=== PATIENT | female | born 1970 | race Caucasian/White ===

== ENCOUNTER 2016-12-23 19:30 | Emergency (ER) | payer OTHER ==
[2016-12-23 20:20] VITALS: BP 113/65; PULSE 68; RESP 18; TEMP 98.4; O2SAT 100
--- NOTE | 2016-12-23 21:01 | ED PDOC ---
HPI: General Adult Time Seen by Provider: 12/23/16 20:25 Chief Complaint (Nursing): Abnormal Skin Integrity Past Medical History Vital Signs: Last Vital Signs Temp 98.4 F 12/23/16 20:17 Pulse 68 12/23/16 20:17 Resp 18 12/23/16 20:17 BP 113/65 12/23/16 20:17 Pulse Ox 100 12/23/16 20:17 - Family History Family History: States: Unknown Family Hx - Immunization History Hx Tetanus Toxoid Vaccination: No Hx Influenza Vaccination: No Hx Pneumococcal Vaccination: No - Home Medications Home Medications: Ambulatory Orders Medication Instructions Recorded Acetaminophen/Butalbital/Caf 1 tab PO TID PRN #30 tab 09/18/15 [Fioricet] predniSONE [predniSONE Tab] 20 mg PO DAILY #12 tab 12/23/16 - Allergies Allergies/Adverse Reactions: Allergies Allergy/AdvReac Type Severity Reaction Status Date / Time pollen extracts Allergy ITCHING Verified 09/18/15 17:13 - ECG O2 Sat by Pulse Oximetry: 100 Disposition - Clinical Impression Clinical Impression: Dermatitis - Patient ED Disposition Is Patient to be Admitted: No Counseled Patient/Family Regarding: Diagnosis, Need For Followup, Rx Given - Disposition Referrals: [facility] [Outside] Disposition: Routine/Home Disposition Time: 20:58 Condition: GOOD Prescriptions: predniSONE [predniSONE Tab] 20 mg PO DAILY #12 tab Instructions: Dermatitis (ED) Print Language: YI
--- NOTE | 2016-12-23 21:02 | ED PDOC ---
HPI: Skin/Bite Injury Time Seen by Provider: 12/23/16 20:25 Chief Complaint (Nursing): Abnormal Skin Integrity Chief Complaint (Provider): rash History Per: Patient History/Exam Limitations: no limitations Current Symptoms Are (Timing): Still Present Additional Complaint(s): Luciana Goldsmith is a 46 year old female, with no previous medical history, who presents to the ED with complaints of a rash around her eyes ongoing for one day. Patient reports to medicating with nikki with minimal relief. Patient reports symptoms are consistent with seasonal allergies presented in previous years. PMD: none provided Past Medical History Reviewed: Historical Data, Nursing Documentation, Vital Signs Vital Signs: Last Vital Signs Temp 98.4 F 12/23/16 20:17 Pulse 68 12/23/16 20:17 Resp 18 12/23/16 20:17 BP 113/65 12/23/16 20:17 Pulse Ox 100 12/23/16 21:03 - Medical History PMH: No Chronic Diseases - Surgical History Surgical History: No Surg Hx - Family History Family History: States: Unknown Family Hx - Living Arrangements Living Arrangements: With Family - Social History Current smoker - smoking cessation education provided: No Alcohol: None Drugs: Denies - Immunization History Hx Tetanus Toxoid Vaccination: No Hx Influenza Vaccination: No Hx Pneumococcal Vaccination: No - Home Medications Home Medications: Ambulatory Orders Medication Instructions Recorded Acetaminophen/Butalbital/Caf 1 tab PO TID PRN #30 tab 09/18/15 [Fioricet] predniSONE [predniSONE Tab] 20 mg PO DAILY #12 tab 12/23/16 - Allergies Allergies/Adverse Reactions: Allergies Allergy/AdvReac Type Severity Reaction Status Date / Time pollen extracts Allergy ITCHING Verified 09/18/15 17:13 Review of Systems ROS Statement: Except As Marked, All Systems Reviewed And Found Negative Constitutional: Negative for: Fever, Chills, Sweats Skin: Positive for: Rash (around the eyes ) Physical Exam - Reviewed Nursing Documentation Reviewed: Yes Vital Signs Reviewed: Yes - Physical Exam Appears: Positive for: Well, Non-toxic, No Acute Distress Head Exam: Positive for: ATRAUMATIC, NORMAL INSPECTION, NORMOCEPHALIC Skin: Positive for: Rash. Negative for: Normal Color Eye Exam: Positive for: Periorbital swelling (upper eyelid ), Other (dry erythematous patchy skin ). Negative for: Nystagmus, Conjunctival injection, Scleral icterus ENT: Positive for: Normal ENT Inspection Neck: Positive for: Normal, Painless ROM Respiratory: Negative for: Accessory Muscle Use, Respiratory Distress Back: Positive for: Normal Inspection Extremity: Positive for: Normal ROM Neurologic/Psych: Positive for: Alert, Gait - ECG O2 Sat by Pulse Oximetry: 100 (RA) Pulse Ox Interpretation: Normal Medical Decision Making Medical Decision Making: Initial Plan: * physical exam * disposition Scribe Attestation: Documented by Taina Eaton, acting as a scribe for Margaret Alvarez PA-C. Provider Scribe Attestation: All medical record entries made by the Scribe were at my direction and personally dictated by me. I have reviewed the chart and agree that the record accurately reflects my personal performance of the history, physical exam, medical decision making, and the department course for this patient. I have also personally directed, reviewed, and agree with the discharge instructions and disposition. Disposition - Clinical Impression Clinical Impression: Dermatitis - Disposition Referrals: [facility] [Outside] Disposition: Routine/Home Disposition Time: 21:15 Condition: GOOD Prescriptions: predniSONE [predniSONE Tab] 20 mg PO DAILY #12 tab Instructions: Dermatitis (ED) Print Language: DANISH
== END 2016-12-23 21:10 | disposition home or self-care (01) ==
LOC: H.ER 19:30
DX: L30.9 Dermatitis, unspecified (principal)

== ENCOUNTER 2017-03-31 17:50 | Observation (INO) | payer OTHER ==
--- NOTE | 2017-03-31 18:33 | ED PDOC ---
HPI: Chest Pain Chief Complaint (Provider): chest pain History Per: Patient History/Exam Limitations: no limitations Onset/Duration Of Symptoms: Days, Waxing/Waning Current Symptoms Are (Timing): Better Severity: Moderate Quality: "Pain" Exacerbating Factors: Deep Breathing Alleviating Factors: Rest <Rommel Kumar - Last Filed: 03/31/17 18:31> <Daniel Frazier - Last Filed: 03/31/17 20:45> Time Seen by Provider: 03/31/17 18:17 Chief Complaint (Nursing): Chest Pain Additional Complaint(s): 46 y/o F no PMhx presents to ED c/o retrosternal CP for the past 10 days, pain comes and goes, worse while lying down, better with rest. Denies SOB, palpitations, headaches vision changes at this time, but admits Hx of palpitations in the past during stressful situations. Patient c/o recently episodes of numbness in the 4th and 5th L/finger last time 3 days ago. Denies Hx of trauma, dizziness, abd pain, heartburn, vomiting or nausea. (Rommel Kumar) Supervising Attending Note <Rommel Kumar - Last Filed: 03/31/17 18:31> - Supervising Attending Note The Documented history was done by the: Physician Burlesque Dancer The documented physical exam was done by the: Physician Burlesque Dancer The documented procedures were done by the: Physician Burlesque Dancer - Attestation: I have personally seen and examined this patient.: Yes I have fully participated in the care of the patient.: Yes I have reviewed all pertinent clinical information: Yes <Daniel Frazier - Last Filed: 03/31/17 20:45> - Notes: Notes:: Chest pain. numbeness to 3rd and 4th R finger after cleaning a lot. No numbness currently. (Daniel Frazier) Past Medical History Reviewed: Nursing Documentation - Medical History PMH: No Chronic Diseases - Surgical History Surgical History: No Surg Hx - Family History Family History: States: Unknown Family Hx - Social History Current smoker - smoking cessation education provided: No Alcohol: None Drugs: Denies - Immunization History Hx Tetanus Toxoid Vaccination: No Hx Influenza Vaccination: No Hx Pneumococcal Vaccination: No <Rommel Kumar - Last Filed: 03/31/17 18:31> <Daniel Frazier - Last Filed: 03/31/17 20:45> Vital Signs: Last Vital Signs Temp 98.2 F 03/31/17 18:02 Pulse 70 03/31/17 18:02 Resp 18 03/31/17 18:02 BP 112/58 L 03/31/17 18:02 Pulse Ox 98 03/31/17 18:45 - Home Medications Home Medications: Ambulatory Orders Medication Instructions Recorded Acetaminophen/Butalbital/Caf 1 tab PO TID PRN #30 tab 09/18/15 [Fioricet] predniSONE [predniSONE Tab] 20 mg PO DAILY #12 tab 12/23/16 - Allergies Allergies/Adverse Reactions: Allergies Allergy/AdvReac Type Severity Reaction Status Date / Time pollen extracts Allergy ITCHING Verified 03/31/17 18:02 MEÑO Risk Score for UA/NSTEMI - MEÑO Risk Score Age > 64: NO 3 or more CAD Risk Factors: NO Known CAD (Stenosis greater than 50%): NO Aspirin use in past 7 days: NO Severe Angina: NO EKG ST changes greater than 0.5mm: NO Positive Cardiac Marker: NO MEÑO Score: 0 Risk %: 5% <Rommel Kumar - Last Filed: 03/31/17 18:31> Review of Systems ROS Statement: Except As Marked, All Systems Reviewed And Found Negative Cardiovascular: Positive for: Chest Pain <Rommel Kumar - Last Filed: 03/31/17 18:31> Cardiovascular: Positive for: Chest Pain Neurological: Positive for: Numbness (finger (gone now)) <Daniel Frazier M - Last Filed: 03/31/17 20:45> Physical Exam - Reviewed Nursing Documentation Reviewed: Yes Vital Signs Reviewed: Yes - Physical Exam Appears: Positive for: Non-toxic, No Acute Distress Skin: Positive for: Normal Color, Warm Eye Exam: Positive for: EOMI, PERRL Cardiovascular/Chest: Positive for: Regular Rate, Rhythm. Negative for: Gallop , Murmur Respiratory: Positive for: Normal Breath Sounds. Negative for: Crackles, Wheezing Gastrointestinal/Abdominal: Positive for: Normal Exam, Soft. Negative for: Tenderness, Guarding, Rebound Extremity: Negative for: Tenderness, Pedal Edema, Calf Tenderness Neurologic/Psych: Positive for: Alert, Oriented. Negative for: Motor/Sensory Deficits <Rommel Kumar - Last Filed: 03/31/17 18:31> - Physical Exam Cardiovascular/Chest: Positive for: Regular Rate, Rhythm, Chest Non Tender. Negative for: Edema Back: Positive for: Normal Inspection <Daniel Frazier - Last Filed: 03/31/17 20:45> - ECG O2 Sat by Pulse Oximetry: 98 <Rommel Kumar - Last Filed: 03/31/17 18:31> - Laboratory Results Result Diagrams: 03/31/17 19:45 03/31/17 19:45 Interpretation Of Abn Labs: no acute - ECG Pulse Ox Interpretation: Normal - Radiology X-Ray: Interpreted by Me, Viewed By Me X-Ray Interpretation: No Acute Disease <Daniel Frazier - Last Filed: 03/31/17 20:45> - Progress ED Course And Treament: 2041: Stable. AAOx3. Pain present so morphine given. Spoke with [facility] resident will admit. (Daniel Frazier) Medical Decision Making <Rommel Kumar - Last Filed: 03/31/17 18:31> <Daniel Frazier - Last Filed: 03/31/17 20:45> Medical Decision Makin46 y/o F with no PMHx present c/o Chest Pain CP rule out ACS EKG Troponin CXR CBC,CMP Aspirin stat (Rommel Kumar) Disposition <Rommel Kumar - Last Filed: 03/31/17 18:31> - Patient ED Disposition Is Patient to be Admitted: Yes Counseled Patient/Family Regarding: Studies Performed, Diagnosis - Disposition Disposition Time: 20:43 - Pt Status Changed To: Hospital Disposition Of: Observation - POA Present On Arrival: None Core Measure Indicators: Chest Pain <Daniel Frazier - Last Filed: 03/31/17 20:45> - Clinical Impression Clinical Impression: Chest pain - Disposition Condition: FAIR
[2017-03-31] MEDS ORDERED: Sodium Chloride 0.9% 1,000 ML IV STA (18:34)
[2017-03-31 19:53] LABS: BASO % 0.7 % (0.0-2.0); EOS # 0.3 K/uL (0.0-0.7); EOS % 4.6 % (0.0-4.0); HEMOGLOBIN 13.4 g/dL (12.0-16.0); LYMPH # 2.4 K/uL (1.0-4.3); LYMPH % 36.1 % (20.0-40.0); MEAN CELL VOLUME 91.2 fl (81.0-99.0); MEAN CORPUSCULAR HEMOGLOBIN 31.3 pg (27.0-31.0); MEAN CORPUSCULAR HGB CONC 34.3 g/dL (33.0-37.0); MEAN PLATELET VOLUME 8.4 fl (7.2-11.7); MONO # 0.5 K/uL (0.0-0.8); MONO % 7.9 % (0.0-10.0); NEUT # 3.4 K/uL (1.8-7.0); NEUT % 50.7 % (50.0-75.0); RBC 4.29 Mil/uL (3.80-5.20); RED CELL DISTRIBUTION WIDTH 11.9 % (11.5-14.5); WHITE BLOOD COUNT 6.7 K/uL (4.8-10.8)
[2017-03-31 20:11] LABS: ALB/GLOB RATIO 1.4 (1.0-2.1); ALBUMIN 4.2 g/dL (3.5-5.0); ALT/SGPT 38 U/L (9-52); AST/SGOT 24 U/L (14-36); BLOOD UREA NITROGEN 13 mg/dl (7-17); GFR AFRICAN-AMERICAN > 60; GFR NON-AFRICAN AMERICAN > 60
[2017-03-31 20:16] LABS: PROTHROMBIN TIME 11.4 Seconds (9.8-13.1)
[2017-03-31 20:17] LABS: INR 1.1 (0.9-1.2); PARTIAL THROMBOPLASTIN TIME 30.6 Seconds (25.6-37.1)
[2017-03-31] MEDS ORDERED: Morphine 4 MG/ML VIAL ONE (21:00)
--- NOTE | 2017-03-31 22:42 | CP.PCM.HP ---
History of Present Illness - History of Present Illness History of Present Illness: 46 y/o F with PMH including diet controlled hyperlipidemia and migraine presented to ED with 10 day history of chest pain. Patient reports gradual onset of pain which is retrosternal, non-radiating and "pressure" like in quality. Pain has been intermittent and ranges from 4-8/10 intensity. She does not identify any aggravating factors but pain is improved with rest and massaging the chest. She reports intermittent sensation of palpitations but denies fevers, chills, SOB, diaphoresis, dizziness, focal weakness, nausea, vomiting or diarrhea. Patient has good cardiovascular effort tolerance and is able to walk 2 miles without chest pain or SOB. She reports significant recent social stressors since she wishes to go back to her home country [place] but cannot since she is caring for her daughter here in the . PMD: Dr Rae, [facility] Present on Admission - Present on Admission Any Indicators Present on Admission: No History of DVT/PE: No History of Uncontrolled Diabetes: No Urinary Catheter: No Decubitus Ulcer Present: No Review of Systems - Review of Systems All systems: reviewed and no additional remarkable complaints except Past Patient History - Infectious Disease Hx of Infectious Diseases: None - Past Social History Smoking Status: Never Smoked Alcohol: None Drugs: Denies Home Situation {Lives}: With Family (Lives with daughter. from . ) Domestic Violence: Negative - CARDIAC Hx Cardiac Disorders: Yes Hx Hypercholesterolemia: Yes (Diet controlled) - PULMONARY Hx Respiratory Disorders: No - NEUROLOGICAL Hx Migraine: Yes - RENAL Hx Chronic Kidney Disease: No - ENDOCRINE/METABOLIC Hx Endocrine Disorders: No - HEMATOLOGICAL/ONCOLOGICAL Hx Blood Disorders: No - INTEGUMENTARY Hx Dermatological Problems: No - MUSCULOSKELETAL/RHEUMATOLOGICAL Hx Musculoskeletal Disorders: No - GASTROINTESTINAL Hx Gastrointestinal Disorders: No - PSYCHIATRIC Hx Substance Use: No - SURGICAL HISTORY Hx Surgeries: No - ANESTHESIA Hx Anesthesia: No Meds Allergies/Adverse Reactions: Allergies Allergy/AdvReac Type Severity Reaction Status Date / Time pollen extracts Allergy ITCHING Verified 03/31/17 18:02 Physical Exam - Constitutional Appears: Non-toxic, No Acute Distress - Head Exam Head Exam: ATRAUMATIC, NORMAL INSPECTION, NORMOCEPHALIC - Eye Exam Eye Exam: EOMI, PERRL - ENT Exam ENT Exam: Mucous Membranes Moist - Respiratory Exam Respiratory Exam: Clear to Auscultation Bilateral, NORMAL BREATHING PATTERN. absent: Chest Wall Tenderness, Rhonchi, Wheezes, Respiratory Distress - Cardiovascular Exam Cardiovascular Exam: REGULAR RHYTHM, RRR, +S1, +S2 - GI/Abdominal Exam GI & Abdominal Exam: Normal Bowel Sounds, Soft. absent: Distended, Guarding, Rebound, Tenderness - Extremities Exam Extremities exam: Positive for: normal capillary refill. Negative for: calf tenderness, pedal edema - Neurological Exam Neurological exam: Alert, CN II-XII Intact, Normal Gait, Oriented x3 - Psychiatric Exam Psychiatric exam: Anxious - Skin Skin Exam: Dry, Warm Results - Vital Signs Recent Vital Signs: Last Vital Signs Temp 98 F 03/31/17 21:20 Pulse 60 03/31/17 21:20 Resp 16 03/31/17 21:20 BP 118/54 L 03/31/17 21:20 Pulse Ox 98 03/31/17 18:45 - Labs Result Diagrams: 03/31/17 19:45 03/31/17 19:45 Assessment & Plan - Assessment and Plan (Free Text) Assessment: 46 y/o F with PMH including diet controlled hyperlipidemia and migraine presented to ED with 10 day history of chest pain. Plan: Chest pain -Etiology undetermined -Will rule out ACS -Troponin negative x1. Will follow x3. -EKG NSR with no ischemic changes noted. Repeat EKG in AM -ASA 325mg PO administered -Admit to telemetry for continuous cardiac monitoring -O2 via NC prn -TSH ordered History of hyperlipidemia -Has history of diet controlled HLD -Repeat lipid panel detected Total chol: 183, LDL: 107, HDL: 31 -10 year cv risk: 1.3% -Associated hypertriglyceridemia: 389 History of Migraine -Taking excedrin PRN for headaches which alleviates symptoms -Patient was experiencing mild headache in ED -Acetaminophen 650mg administered -Will follow for response DVT Prophylaxis -Lovenox 40mg SC daily
[2017-03-31 23:23] LABS: HDL CHOLESTEROL 31 MG/DL (30-70); LDL CHOLESTEROL 107 mg/dL (0-129)
--- NOTE | 2017-04-01 07:30 | RAD ---
HISTORY: dyspnea COMPARISON: No prior. FINDINGS: LUNGS: No active pulmonary disease. PLEURA: No significant pleural effusion identified, no pneumothorax apparent. CARDIOVASCULAR: Normal. OSSEOUS STRUCTURES: No significant abnormalities. VISUALIZED UPPER ABDOMEN: Normal. OTHER FINDINGS: None. IMPRESSION: No active disease.
[2017-04-01 08:19] VITALS: PULSE 60
[2017-04-01] MEDS ORDERED: Enoxaparin 40 mg Syringe SC SCH (09:00)
--- NOTE | 2017-04-01 12:03 | CARD ---
APPROVED REPORT EKG Measurement Heart [id number] <Conclusion> Normal sinus rhythm Nonspecific T wave abnormality Abnormal ECG
[2017-04-01 12:43] VITALS: BP 105/68; RESP 18; TEMP 98.1; O2SAT 96
--- NOTE | 2017-04-01 14:09 | CP.PCM.DIS ---
Provider - Provider Date of Admission: 03/31/17 20:36 Attending physician: Christie Ramirez MD Hospital Course - Lab Results Lab Results: Most Recent Lab Values WBC 6.7 K/uL (4.8-10.8) 03/31/17 19:45 RBC 4.29 Mil/uL (3.80-5.20) 03/31/17 19:45 Hgb 13.4 g/dL (12.0-16.0) 03/31/17 19:45 Hct 39.1 % (34.0-47.0) 03/31/17 19:45 MCV 91.2 fl (81.0-99.0) 03/31/17 19:45 MCH 31.3 pg (27.0-31.0) H 03/31/17 19:45 MCHC 34.3 g/dL (33.0-37.0) 03/31/17 19:45 RDW 11.9 % (11.5-14.5) 03/31/17 19:45 Plt Count 217 K/uL (130-400) 03/31/17 19:45 MPV 8.4 fl (7.2-11.7) 03/31/17 19:45 Neut % (Auto) 50.7 % (50.0-75.0) 03/31/17 19:45 Lymph % (Auto) 36.1 % (20.0-40.0) 03/31/17 19:45 [place] % (Auto) 7.9 % (0.0-10.0) 03/31/17 19:45 Eos % (Auto) 4.6 % (0.0-4.0) H 03/31/17 19:45 Baso % (Auto) 0.7 % (0.0-2.0) 03/31/17 19:45 Neut # 3.4 K/uL (1.8-7.0) 03/31/17 19:45 Lymph # 2.4 K/uL (1.0-4.3) 03/31/17 19:45 [place] # 0.5 K/uL (0.0-0.8) 03/31/17 19:45 Eos # 0.3 K/uL (0.0-0.7) 03/31/17 19:45 Baso # 0.0 K/uL (0.0-0.2) 03/31/17 19:45 PT 11.4 Seconds (9.8-13.1) 03/31/17 19:45 INR 1.1 (0.9-1.2) 03/31/17 19:45 APTT 30.6 Seconds (25.6-37.1) 03/31/17 19:45 Sodium 138 mmol/l (132-148) 03/31/17 19:45 Potassium 3.7 MMOL/L (3.6-5.0) 03/31/17 19:45 Chloride 102 mmol/L (98-107) 03/31/17 19:45 Carbon Dioxide 26 mmol/L (22-30) 03/31/17 19:45 Anion Gap 13 (10-20) 03/31/17 19:45 BUN 13 mg/dl (7-17) 03/31/17 19:45 Creatinine 0.6 mg/dL (0.7-1.2) L 03/31/17 19:45 Est GFR ( Amer) > 60 03/31/17 19:45 Est GFR (Non-Af Amer) > 60 03/31/17 19:45 Random Glucose 94 mg/dL (65-105) 03/31/17 19:45 Calcium 9.0 mg/dL (8.4-10.2) 03/31/17 19:45 Total Bilirubin 0.2 mg/dl (0.2-1.3) 03/31/17 19:45 AST 24 U/L (14-36) 03/31/17 19:45 ALT 38 U/L (9-52) 03/31/17 19:45 Alkaline Phosphatase 40 U/L (38-126) 03/31/17 19:45 Troponin I < 0.0120 ng/mL (0.00-0.120) 04/01/17 11:20 Total Protein 7.2 G/DL (6.3-8.2) 03/31/17 19:45 Albumin 4.2 g/dL (3.5-5.0) 03/31/17 19:45 Globulin 3.0 gm/dL (2.2-3.9) 03/31/17 19:45 Albumin/Globulin Ratio 1.4 (1.0-2.1) 03/31/17 19:45 Triglycerides 389 mg/DL (0-149) H 03/31/17 22:31 Cholesterol 183 mg/dL (0-199) 03/31/17 22:31 LDL Cholesterol Direct 107 mg/dL (0-129) 03/31/17 22:31 HDL Cholesterol 31 MG/DL (30-70) 03/31/17 22:31 TSH 3rd Generation 0.32 mIU/ML (0.46-4.68) L 03/31/17 22:31 Discharge Exam - Head Exam Head Exam: ATRAUMATIC, NORMAL INSPECTION, NORMOCEPHALIC Discharge Plan - Follow Up Plan Condition: FAIR Disposition: HOME/ ROUTINE Instructions: Chest Pain (DC) Additional Instructions: Activity as tolerated . Follow-up with Primary Doctor in one week. Regular diet. Referrals: Christie Ramirez MD [Staff Provider] -
== END 2017-04-01 15:20 | disposition home or self-care (01) ==
LOC: H.ER 17:50 → H.ERHOLD 20:36 → H.TEL 22:34
PROVIDERS: ADMIT Family Medicine Geriatric Medicine; ATTEND Family Medicine Geriatric Medicine
DX: R07.9 Chest pain, unspecified (principal); E78.5 Hyperlipidemia, unspecified; E78.00 Pure hypercholesterolemia, unspecified; G43.909 Migraine, unspecified, not intractable, without status migrainosus